=== PATIENT | female | born 1970 | race Caucasian/White ===

== ENCOUNTER 2019-06-03 08:53 | Day surgery (SDC) | payer OTHER ==
[2019-06-03 09:40] VITALS: BMI 34.2
[2019-06-03] MEDS ORDERED: CEFAZOLIN 2 GM in DEXTROSE 5%-WATER - 50 ML IVPB ONE (11:15)
[2019-06-03] MEDS ORDERED: methylPREDNISolone ACET (DEPO) 40 MG/1 ML VIAL ONE ×2 (12:07→12:08)
[2019-06-03] MEDS ORDERED: BUPIVACAINE HCL 0.25% 125 MG/50 ML VIAL ONE ×2 (12:07→12:08)
[2019-06-03] MEDS ORDERED: EPINEPHrine 1:1,000 1 MG/1 ML - 30ML VIAL (INJECTION) ONE (12:07)
[2019-06-03] MEDS ORDERED: MIDAZOLAM HCL 2 MG/2 ML SINGLE DOSE VIAL ONE (12:33)
[2019-06-03] MEDS ORDERED: ONDANSETRON 4 MG/2 ML VIAL IVPUSH PRN (12:57)
[2019-06-03] MEDS ORDERED: oxyCODONE HCL 5 MG TABLET PO PRN (12:57)
[2019-06-03] MEDS ORDERED: LACTATED RINGERS SOLUTION 1,000 ML IV SCH (13:00)
[2019-06-03] MEDS ORDERED: BUPIVACAINE HCL/PF 0.25% (2.5MG/ML) 10 ML VIAL IJ ONE (13:11)
[2019-06-03] MEDS ORDERED: ACETAMINOPHEN 1000 MG/100 ML VIAL (NON FORMULARY) IVPB ONE (13:15)
[2019-06-03] MEDS ORDERED: KETOROLAC TROMETHAMINE 30 MG/1 ML VIAL ONE (13:20)
--- NOTE | 2019-06-03 13:40 | OP ---
Operative Note - Note: Operative Date: 06/03/19 Pre-Operative Diagnosis: Left knee pain Operation: Left knee arthroscopy, removal of loose bodies Findings: hyaline cartilage eroded from medial epicondyle. Ostephyte formation Post-Operative Diagnosis: Same as Pre-op Surgeon: Sudhakar Bae [employer] Teacher: Carter Nguyễn Anesthesiologist/[employer] OPERATOR: Bridgett Miller Anesthesia: General Specimens Removed: None. Estimated Blood Loss (mls): 2 Fluid Volume Replaced (mls): 500 Operative Report Dictated: Yes
--- NOTE | 2019-06-03 13:41 | SURG ---
Surgery Progress Man Note Progress Man: Carter Nguyễn PA-C Date of Service: 06/03/19 Diagnosis: Left knee pain Procedure: Left knee arthroscopy I was present for the entirety of the operative procedure. For further detail, please refer to operative report. Visit type - Case Type Case Type: Scheduled - New patient This patient is new to me today: Yes Date on this admission: 06/03/19
[2019-06-03] MEDS ORDERED: ONDANSETRON 4 MG/2 ML VIAL ONE (13:53)
[2019-06-03 14:29] VITALS: TEMP 98.2
--- NOTE | 2019-06-03 14:55 | OP ---
DATE OF OPERATION: DATE OF DICTATION: 06/03/2019 SURGEON: Sudhakar Bae MD REFINERY PROCESS ENGINEER: KIRAN Jiménez PREOPERATIVE DIAGNOSIS: Medial meniscal tear of left knee. POSTOPERATIVE DIAGNOSIS: Diffuse femoral chondrolysis, right knee with features of osteoarthritis. ANESTHESIA: General anesthesia. ANTIBIOTICS GIVEN: Kefzol 2 g. OPERATION DETAILS: Patient correctly identified, placed supine on the operating table, a limb immobilizer applied and the tourniquet. The left lower extremity was prepped, draped in the routine manner with Betadine scrub solution, wiped off with alcohol, DuraPrep applied. Timeout was called. The salient feature here was that of a normal-looking synovium. The retropatellar surface was completely normal, but the femoral condyle appeared to have an unusual appearance of what appeared to be a chondrolysis-type picture with osteoarthritis. This was diffusely extensive across the medial femoral condyle. Trochlear groove femoral condyle. The intercondylar notch appeared normal. The medial compartment was entered. The meniscus from back to front was completely normal. The tibial surface revealed bosselated changes, as well. The popliteal hiatus was entered, loose bodies were identified, and multiple loose bodies were washed out in the knee. The lateral joint surface was far less involved than the medial. The meniscus appeared to be completely intact. DIAGNOSIS: Osteoarthritis, left knee. Plan for gel-supplementation injections. . MD HAIR Fox/[id number]
[2019-06-03 15:50] VITALS: BP 112/68; PULSE 72
== END 2019-06-03 16:00 | disposition home or self-care (01) ==
LOC: FASU 08:53
PROVIDERS: ATTEND Orthopaedic Surgery Orthopaedic Surgery of the Spine
PROC: 0SCD4ZZ Extirpation of Matter from Left Knee Joint, Percutaneous Endoscopic Approach (ICD-10-PCS; principal; 2019-06-03 11:15)
DX: M17.11 Unilateral primary osteoarthritis, right knee (principal); M23.42 Loose body in knee, left knee
CPT/HCPCS: 84703; 94760; J0131